=== PATIENT | male | born 1980 | race Caucasian/White ===

== ENCOUNTER 2024-03-06 17:45 | Emergency (ER) | payer BC, SELFPAY ==
[2024-03-06 17:48] VITALS: BP 147/86
--- NOTE | 2024-03-06 17:54 | ED.GENMED ---
ED Provider Triage
<Amber Santos PA-C - Last Filed: 03/06/24 17:55>
-
Patient seen by provider in Triage?: Seen in Triage
A medical screening examination has been initiated by a qualified medical provider. Based on the assessment performed at this time, it has been determined that an emergent medical condition may exist and the patient has been informed that further
medical evaluation and possible additional diagnostic testing may be needed.
HPI: This is a medical evaluation conducted in person to initiate diagnostic evaluation and provide initial therapeutics. Please see further documentation by the treating clinician.
GENERAL: Alert , tachypneic, ,gagging, pale
ENT: No visible abnormalities
LUNGS: No acute respiratory distress
ABD: NONTENDER
NEUROLOGICAL: Alert and oriented
SKIN: Skin intact. No visible changes.
MUSCULOSKELETAL: Moving extremities normally
PSYCH: Normal and appropriate interaction.
43-year-old male daily marijuana use, no chronic medical problems presents with nausea vomiting this morning. Patient said he had a bowel movement and then just promptly started having nausea and vomiting. He is dry heaved most of the day. He
cannot get the nausea to stop. He is not having any abdominal pain or diarrhea. There is no fever. He tried a hot shower several times.
Patient has never had this happen before
I do suspect this is probably cannabis hyperemesis, will check screening labs and attempt Zofran ODT while patient waits to be seen
History of Present Illness
<Amber Santos PA-C - Last Filed: 03/06/24 17:55>
General
Chief Complaint: Abdominal Symptoms
Time Seen by Provider: 03/06/24 20:39
<Robina Ge MD - Last Filed: 03/06/24 23:47>
History of Present Illness
History of Present Illness:
Patient is a 43-year-old man presenting to the emergency department nausea vomiting. Patient states that he woke up this morning had a bowel movement which was like his usual and then proceeded to have nausea and vomiting. He had more than 6
episodes of vomiting. Is not bloody. Secondary to the vomiting he did start to feel lightheaded dizzy. He denies any diarrhea any travel antibiotics or sick contacts. No chest pain. No shortness of breath. He does feel as if he is
hyperventilating. at bedside believes that it could be secondary to the nausea and the dry heaves. He denies any abdominal pain. He does state that he has a burning sensation in his epigastric region after all the vomiting. He does smoke
marijuana daily
Phy Exam
<Robina Ge MD - Last Filed: 03/06/24 23:47>
Physical Exam
Physical Exam:
GENERAL: in no acute distress
HEENT: normocephalic, extraocular movements intact, dry oral mucosa
NECK: normal inspection
RESPIRATORY: no respiratory distress, clear to auscultation bilaterally
CARDIOVASCULAR: regular rate and rhythm
ABDOMEN/: soft, non-distended, non-tender to palpation, no rebound or guarding
EXTREMITIES: non-tender, no edema/swelling
NEUROLOGIC: awake and alert, moves all extremities
SKIN: warm
Course
<Amber Santos PA-C - Last Filed: 03/06/24 17:55>
Orders/Labs/Results
Orders:
Orders
03/06/24 17:52
Ondansetron Orally Disint [Zofran Odt (Orally Disintegrating)] 4 mg PO NOW STA
03/06/24 17:53
Electrocardiogram (*1) Urgent
Reason for Study: QTc Monitoring
EKG- Treatment ONCE
03/06/24 17:54
Ondansetron Orally Disint [Zofran Odt (Orally Disintegrating)] 4 mg .ROUTE .STK-MED ONE
03/06/24 18:01
Complete Blood Count/With Diff Urgent
Comprehensive Metabolic Panel Urgent
Lipase Urgent
03/06/24 20:49
0.9% Sodium Chloride 1000 ml [Nss] 1,000 ml IV BOLUS
Famotidine [Pepcid] 20 mg IV NOW STA
Ondansetron Injectable [Zofran] 4 mg IV NOW STA
03/06/24 20:56
Trimethobenzamide [Tigan] 200 mg IM NOW STA
Abnormal Lab Results
03/06/24
18:01
WBC 11.9 H 10^3/uL
(4.8-10.8)
MPV 10.6 H fL
(7.4-10.4)
Abs Immat Gran (auto) 0.1 H 10^3/uL
(0-0.05)
Absolute Neuts (auto) 10.4 H 10^3/uL
(1.4-6.5)
Absolute Lymphs (auto) 1.0 L 10^3/uL
(1.2-3.4)
Neutrophils % 87.5 H %
(42.2-75.2)
Lymphocytes % 8.0 L %
(20.5-51.1)
Sodium 133 L mmol/L
(135-145)
Chloride 97 L mmol/L
(98-107)
Carbon Dioxide 18 L mmol/L
(22-30)
Glucose 133 H mg/dl
(70-99)
03/06/24 18:01
03/06/24 18:01
Vital Signs
Initial and Last Documented VS:
Initial Vital Signs
Temp Pulse Resp BP Pulse Ox
97.6 F 96 22 147/86 100
03/06/24 17:48 03/06/24 17:48 03/06/24 17:48 03/06/24 17:48 03/06/24 17:48
Last Documented Vital Signs
Temp Pulse Resp BP Pulse Ox
97.6 F 91 22 125/70 99
03/06/24 21:24 03/06/24 23:00 03/06/24 23:00 03/06/24 23:00 03/06/24 23:00
<Robina Ge MD - Last Filed: 03/06/24 23:47>
Orders/Labs/Results
Orders:
Orders
03/06/24 17:52
Ondansetron Orally Disint [Zofran Odt (Orally Disintegrating)] 4 mg PO NOW STA
03/06/24 17:53
Electrocardiogram (*1) Urgent
Reason for Study: QTc Monitoring
EKG- Treatment ONCE
03/06/24 17:54
Ondansetron Orally Disint [Zofran Odt (Orally Disintegrating)] 4 mg .ROUTE .STK-MED ONE
03/06/24 18:01
Complete Blood Count/With Diff Urgent
Comprehensive Metabolic Panel Urgent
Lipase Urgent
03/06/24 20:49
0.9% Sodium Chloride 1000 ml [Nss] 1,000 ml IV BOLUS
Famotidine [Pepcid] 20 mg IV NOW STA
Ondansetron Injectable [Zofran] 4 mg IV NOW STA
03/06/24 20:56
Trimethobenzamide [Tigan] 200 mg IM NOW STA
Abnormal Lab Results
03/06/24
18:01
WBC 11.9 H 10^3/uL
(4.8-10.8)
MPV 10.6 H fL
(7.4-10.4)
Abs Immat Gran (auto) 0.1 H 10^3/uL
(0-0.05)
Absolute Neuts (auto) 10.4 H 10^3/uL
(1.4-6.5)
Absolute Lymphs (auto) 1.0 L 10^3/uL
(1.2-3.4)
Neutrophils % 87.5 H %
(42.2-75.2)
Lymphocytes % 8.0 L %
(20.5-51.1)
Sodium 133 L mmol/L
(135-145)
Chloride 97 L mmol/L
(98-107)
Carbon Dioxide 18 L mmol/L
(22-30)
Glucose 133 H mg/dl
(70-99)
03/06/24 18:01
03/06/24 18:01
Vital Signs
Initial and Last Documented VS:
Initial Vital Signs
Temp Pulse Resp BP Pulse Ox
97.6 F 96 22 147/86 100
03/06/24 17:48 03/06/24 17:48 03/06/24 17:48 03/06/24 17:48 03/06/24 17:48
Last Documented Vital Signs
Temp Pulse Resp BP Pulse Ox
97.6 F 91 22 125/70 99
03/06/24 21:24 03/06/24 23:00 03/06/24 23:00 03/06/24 23:00 03/06/24 23:00
<Robina Ge MD - Last Filed: 03/06/24 23:47>
MDM/Problems Addressed
Differential Diagnosis Includes:
43-year-old man presenting to the emergency department nausea vomiting for 1 day. Vitals are unremarkable and exam does show dry oral mucosa. Likely viral gastritis versus cannabis hyperemesis. Epigastric pain certainly could be esophagitis
versus reflux from the vomiting. Doubt ACS or pancreatitis given benign abdominal exam. Blood work obtained prior to my evaluation does show an anion gap acidosis likely from dehydration. His LFTs and lipase are normal. Screening EKG obtained
prior to my evaluation which per my interpretation is no ST changes. He does have a prolonged QTc. Will give fluids and tigan and reassess.
<Robina Ge MD - Last Filed: 03/06/24 23:47>
*Critical Care Note
Total Time (30-74mins, 75-104mins- exclusive of procedures): Not Applicable
<Robina Ge MD - Last Filed: 03/06/24 23:47>
Update Note
Update Note:
On reevaluation patient tolerating p.o. Will discharge at this time. Given prolonged QTc will discharge with scopolamine patch.
ED Attending Note
<Amber Santos PA-C - Last Filed: 03/06/24 17:55>
-
Portions of this chart may have been created with voice recognition software.� Occasional wrong word or��sound alike� substitutions may have occurred due to the inherent limitations of voice recognition software.
Discharge Plan
Departure
Patient Disposition: Home (Routine Discharge)
Date of Disposition: 03/06/24
Time of Disposition: 23:43
Patient with high blood pressure during this ER visit?: No
Discharge Problem:
Acute vomiting, prolonged qtc
Instructions: Clear Liquid Diet, Nausea and Vomiting, Adult (DC)
Prescriptions:
New
scopolamine base 1 mg over 3 days patch 3 day
1 patch transdermal Q3D PRN (Reason: nausea and vomitting) Qty: 4 0RF
Referrals:
UNKNOWN - PT DOES,NOT KNOW [Family Provider] -
Activity Restrictions/Additional Instructions:
You have been evaluated in the Emergency Department today for nausea and vomiting. Your evaluation suggests that your symptoms are most likely due to viral illness which will improve on its own with rest and fluids. Remember to drink plenty of
fluids at home. I did prescribe you a patch that can help with nausea.
Please follow up with your primary care physician within two days.
Return to the Emergency Department if you experience worsening or uncontrolled pain, inability to tolerate fluids by mouth, difficulty breathing, fevers 100.4�F or greater, recurrent vomiting, or any other concerning symptoms.
Thank you for choosing us for your care.
Interventions
Interventions:
*Risk Screen - Suicide Last Done: 03/06/24 17:48
*General Assessment Last Done: 03/06/24 17:48
*Neglect/Abuse Screening Last Done: 03/06/24 17:48
ED- Fall Risk Assessment Last Done: 03/06/24 21:28
P[facility] Assessment Last Done: 03/06/24 21:28
Discharge Date and Time
Print Language: SPANISH
[2024-03-06] MEDS: ZOFRAN ODT (ORALLY DISINTEGRATING) 4 MG PO (17:55)
[2024-03-06 18:09] LABS: % Basophils 0.2 % (0-2); % Immature Granulocytes 0.4 % (0-0.5); % Monocytes 3.9 % (1.7-9.3); % Neutrophils 87.5 % (42.2-75.2); Absolute Immature Granulocytes 0.1 10^3/uL (0-0.05); Absolute Monocytes 0.5 10^3/uL (0.1-0.6); Absolute Neutrophils 10.4 10^3/uL (1.4-6.5); Hematocrit 46.1 % (39.0-52.0); Hemoglobin 16.2 g/dL (13.0-18.0); Mean Corp Hgb Conc. 35.1 g/dL (33.0-37.0); Mean Corpuscular Hgb 29.9 pg (27.0-31.0); Mean Corpuscular Volume 85.1 fL (80.0-94.0); Mean Platelet Volume 10.6 fL (7.4-10.4); Nucleated Red Blood Cells % 0 % (-); Platelet Count 249 10^3/uL (130-400); Red Blood Cell Count 5.42 10^6/uL (4.70-6.10); Red Cell Dist. Width 12.5 % (11.5-14.5); White Blood Cell Count 11.9 10^3/uL (4.8-10.8)
[2024-03-06 18:28] LABS: AST (SGOT) 23 U/L (17-59); Albumin 4.9 g/dl (3.5-5.0); Alkaline Phosphatase 99 U/L (38-126); Blood Urea Nitrogen 13 mg/dl (9-20); Calcium 10.2 mg/dl (8.4-10.2); Carbon Dioxide 18 mmol/L (22-30); Chloride 97 mmol/L (98-107); Glucose 133 mg/dl (70-99); Potassium 3.6 mmol/L (3.5-5.1); Sodium 133 mmol/L (135-145); Total Bilirubin 0.9 mg/dl (0.2-1.3); Total Protein 7.9 g/dl (6.3-8.2); eGFR > 60.00
[2024-03-06 18:29] LABS: Lipase 113 U/L (23-300)
[2024-03-06 19:09] LABS: ALT (SGPT) 17 U/L (0-50)
[2024-03-06] MEDS: TIGAN 200 MG IM (21:22)
[2024-03-06] MEDS: NSS 1000 IV (21:23)
[2024-03-06] MEDS: PEPCID 20 MG IV (21:23)
[2024-03-06 23:00] VITALS: BP 125/70
== END 2024-03-07 00:28 | disposition home or self-care (01) ==
LOC: EMR 17:45
PROVIDERS: Physician Assistant; EMERGENCY PHYSICIAN Student in an Organized Health Care Education/Training Program
DX: R11.2 Nausea with vomiting, unspecified (principal); R94.31 Abnormal electrocardiogram [ECG] [EKG]
CPT/HCPCS: 99283; 96374; 96372; 80053; 83690; 85025; 93005